=== PATIENT | male | born 1970 | race Caucasian/White ===

== ENCOUNTER 2016-02-23 19:30 | Emergency (ER) | payer OTHER ==
[2016-02-23 19:54] VITALS: RESP 18; TEMP 97.9
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
[2016-02-23] MEDS: KETOROLAC 60 MG/2 ML VIAL IM ONE (20:45)
[2016-02-23] MEDS: Dexamethasone Oral Soln 10 MG/5 ML SOLN PO ONE (20:46)
--- NOTE | 2016-02-23 21:35 | DI ---
HISTORY: Fell on ice. Back pain radiating to the hips. History of disc surgery in 1996. COMPARISON: 06/30/2011. FINDINGS: AP, lateral and coned-down views of the lumbar spine are obtained, and demonstrate anatomi c alignment without fractures. There has been interval loss of intervertebral disc height at the L4/ L5 level with facet hypertrophy. A nonobstructive bowel gas pattern is seen. No pathologic calcific ations are noted. IMPRESSION: 1. Degenerative disc disease worsening at the L4/L5 level. No fractures.
== END 2016-02-23 21:50 | disposition home or self-care (01) ==
LOC: ER 19:30
DX: M54.5 Low back pain (principal); M25.552 Pain in left hip; M25.551 Pain in right hip
CPT/HCPCS: 72100; 96372; 99282 ×2; J1885; J8540

== ENCOUNTER → 2016-03-11 | Outpatient (CLI) | payer OTHER | LOC: MMPC 09:00 | PROVIDERS: ATTEND Family Medicine | DX: H90.6 Mixed conductive and sensorineural hearing loss, bilateral (principal) | CPT/HCPCS: 99213; G0463 ==

== ENCOUNTER → 2016-03-16 | Outpatient (CLI) | payer OTHER | LOC: MMPC 10:00 | PROVIDERS: ATTEND Orthopaedic Surgery | DX: M17.0 Bilateral primary osteoarthritis of knee (principal) | CPT/HCPCS: 20610; 99213; G0463; J0702; J7325 ==

== ENCOUNTER → 2016-03-25 | Outpatient (CLI) | payer OTHER | LOC: MMPC 10:00 | PROVIDERS: ATTEND Podiatrist Foot & Ankle Surgery | DX: E11.9 Type 2 diabetes mellitus without complications (principal); M25.572 Pain in left ankle and joints of left foot; M25.571 Pain in right ankle and joints of right foot; M76.61 Achilles tendinitis, right leg; L60.8 Other nail disorders | CPT/HCPCS: 11719 ×2; 99213; G0463 ==

== ENCOUNTER → 2016-04-02 | Outpatient (CLI) | payer OTHER | LOC: MMPC 09:00 | PROVIDERS: ATTEND Family Medicine | DX: R51 Headache (principal); E66.9 Obesity, unspecified; K12.2 Cellulitis and abscess of mouth | CPT/HCPCS: 99213; J0696 ==

== ENCOUNTER → 2016-06-24 | Outpatient (CLI) | payer OTHER ==
--- NOTE | 2016-06-24 12:18 | DI ---
XR FOOT COMPLETE MIN 3VW WB,06/24/2016 10:41 AM: Clinical History: Hallux rigidus of the left foot. Previous Exam: October 01, 2014 Findings: 3 views of the left foot are obtained, and demonstrate anatomic alignment without fractures. Degenera tive osteoarthritis is noted of the left first metatarsophalangeal joint with osteophyte formation. The surrounding soft tissues are unremarkable. There is in these up the at the insertion of the Achil les tendon and the plantar fascia. There are degenerative changes involving the tarsometatarsal joints. Impression: Degenerative hypertrophy of the left first metatarsophalangeal joint.
== END ==
LOC: MOB RAD 10:44
PROVIDERS: ATTEND Podiatrist Foot & Ankle Surgery
DX: M20.22 Hallux rigidus, left foot (principal); M19.072 Primary osteoarthritis, left ankle and foot
CPT/HCPCS: 73630

== ENCOUNTER → 2016-06-26 | Outpatient (CLI) | payer OTHER | LOC: MMPC 09:00 | PROVIDERS: ATTEND Family Medicine | DX: E11.9 Type 2 diabetes mellitus without complications (principal); I10 Essential (primary) hypertension; E66.8 Other obesity | CPT/HCPCS: 99213; G0463 ==

== ENCOUNTER → 2016-07-27 | Outpatient (CLI) | payer OTHER ==
--- NOTE | 2016-07-27 14:59 | DI ---
XR TOES MIN 2VW,07/27/2016 2:19 PM: Clinical History: Injury of right great toe Previous Exam: None available. Findings: 3 views of the right great toe are obtained, and demonstrate diffuse degenerative changes of the righ t great toe worst in the right first metatarsophalangeal joint. A few osteophytes are noted. There is some soft tissue swelling. Impression: Degenerative changes of the right first metatarsophalangeal joint.
== END ==
LOC: MOB RAD 14:22
PROVIDERS: ATTEND Physician Assistant
DX: S99.921A Unspecified injury of right foot, initial encounter (principal); M19.071 Primary osteoarthritis, right ankle and foot; W18.00XA Striking against unspecified object with subsequent fall, initial encounter; Y93.H2 Activity, gardening and landscaping
CPT/HCPCS: 73660; 99212; G0463

== ENCOUNTER 2016-08-19 00:04 | Emergency (ER) | payer OTHER ==
[2016-08-19 00:54] VITALS: RESP 20; TEMP 97.4
[2016-08-19] MEDS ORDERED: Sodium Chloride 0.9% 1,000 ML PRIMARY IV ONE (01:39)
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
== END 2016-08-19 01:38 | disposition home or self-care (01) ==
LOC: ER 00:04
DX: M25.551 Pain in right hip (principal); E11.9 Type 2 diabetes mellitus without complications; I10 Essential (primary) hypertension; W11.XXXA Fall on and from ladder, initial encounter
CPT/HCPCS: 73502; 99283

== ENCOUNTER → 2016-09-03 | Outpatient (CLI) | payer OTHER ==
[2016-09-03 13:29] LABS: HEMOGLOBIN A1C 6.49 % (4.2-6.0)
--- NOTE | 2016-09-03 13:34 | EKG ---
[address] [address] Measurements Intervals [place] Rate: 54 P: 61 MN: 139 QRS: 40 QRSD: 91 T: 52 QT: 436 QTc: 422 Interpretive Statements SINUS BRADYCARDIA Compared to ECG 08/15/2014 14:31:34 Sinus rhythm no longer present Electronically Signed On 09-05-16 16:25:33 MDT by Ted Vivar [email or web address]
[2016-09-03 13:38] LABS: BLOOD UREA NITROGEN 16 mg/dL (7-22); BUN/CREATININE RATIO 14.54 (6-20); CALCIUM 8.9 mg/dL (8.7-10.7); EST GLOMERULAR FILTRATION > 60 (>60 ml/min/1.73m(2))
== END ==
LOC: LAB 12:56
PROVIDERS: ATTEND Podiatrist Foot & Ankle Surgery
DX: M20.22 Hallux rigidus, left foot (principal); E11.9 Type 2 diabetes mellitus without complications; R00.1 Bradycardia, unspecified; F17.200 Nicotine dependence, unspecified, uncomplicated
CPT/HCPCS: 36415; 80053; 83036; 93005; 93010

== ENCOUNTER 2016-09-04 05:51 | Day surgery (SDC) | payer OTHER ==
[2016-09-04] MEDS ORDERED: Lactated Ringers 1,000 ML PRIMARY IV ONE (06:00)
[2016-09-04] MEDS ORDERED: LIDOCAINE W/ SODIUM BICARB 0.5 ML SYR ONE (06:01)
[2016-09-04] MEDS ORDERED: ceFAZolin Inj 2gm (Premix) 0 ML IV ONE (06:01)
[2016-09-04 06:39] VITALS: RESP 14
[2016-09-04] MEDS ORDERED: IPRATROPIUM/ALBUTEROL SULFATE 3 ML NEB NEB ONE ×2 (06:58→07:05)
[2016-09-04] MEDS ORDERED: MEPIVACAINE HCL/PF 20 MG/1 ML IV ONE (07:05)
[2016-09-04] MEDS ORDERED: MIDAZOLAM 5 MG/1 ML ONE (07:06)
[2016-09-04] MEDS ORDERED: fentaNYL Inj 250 MCG/5 ML VIAL ONE (07:06)
[2016-09-04] MEDS ORDERED: DEXAMETHASONE PF 10 MG/1 ML VIAL ONE (07:06)
[2016-09-04] MEDS ORDERED: BUPIVACAINE 0.5% W/EPI MPF -30 ML VIAL IV ONE (07:07)
[2016-09-04] MEDS ORDERED: ceFAZolin Inj 3 GM in Sodium Chloride 0.9% 100 ML IV ONE (07:30)
--- NOTE | 2016-09-04 07:40 | CRNA.PROCE ---
Nerve Block Documentation - - Safety Measures: Time Out Taken, Site Verified - - Type of Nerve Block Used: Left Popliteal Fossa Block (Primary anesthetic for bunionectomy.) Position for Nerve Block: Prone Moniters Used During Block: EKG, SPO2, NIBP Oxygen Sumpplented: Yes Sedation Used - Enter Amount in Comment Field: Midazolam (mg): Yes (2.5) Skin Prep Used: ChloroPrep (Twice) Draped: No Technique: Nerve Stimulator Stimulation Hz: 1 Stimulation Staring mA: 1.8 Stimulation Ending mA: 0.5 Local Anesthetic - Enter Amt in Comment Field: 0.5 % Bupivicaine with Epinephrine 1:200,000 (mL): Yes (25 ml in 1.5), 2 % Mepivacaine (mL): Yes (15 ml in 1.5 ml increments) Additives to Nerve Blocks: Dexamethasone (mg): Yes (10)
[2016-09-04] MEDS ORDERED: ePHEDrine Inj 50 MG/ML AMP ONE (08:24)
[2016-09-04] MEDS ORDERED: BUPivacaine Liposome/PF (Exparel) Inj 20ml vial INFIL ONE ×2 (08:27→09:08)
[2016-09-04] MEDS ORDERED: NORMAL SALINE 10 ML SYRINGE FLUSH IVP PRN (09:31)
--- NOTE | 2016-09-04 09:44 | GEN.OPNOTE ---
Operative Report Surgeon: Geraldo Gaitan DPM Anesthesia Type: General, Regional, Local (with post op exparel sub cutaneous) Anesthesia Provider: Joyce Clark CRNA Surgery Date: 09/04/16 Preoperative Diagnosis: 1. Left foot pain. 2. Left hallux rigidus. Postoperative Diagnosis: 1. Left foot pain. 2. Left hallux rigidus. Procedure: 1. Left modified Colin bunionectomy. [id number] Estimated Blood Loss (mL): 5 (pneumatic cuff about the left ankle at 250 mmHg pressure for 58 minutes total time.) Fluids: 3 g Ancef preoperatively. 900 mL lactated Ringer's Complications: None Description of Procedure: The patient was brought to the operating room and placed in the supine position. They had already been given a popliteal block of the lower extremity , and MAC was continued. The patient was then converted to general anesthesia. The foot was prepped and draped in the usual sterile fashion. A timeout was performed. Preoperative radiographs were reviewed delineating the area of concern, and this was marked on the foot. The foot was then exsanguinated with an elastic Esmarch, after which a pneumatic cuff was inflated about the left ankle to 250 mmHg pressure. Attention was directed to the dorsal left first metatarsophalangeal joint on the right foot. A linear incision was made just lateral to the extensor hallucis longus tendon of the proximally 4 cm length. This was deepened by sharp and blunt dissection to level of the joint capsule. Joint capsule was also incised longitudinally and retracted as the fibers are released from the exostosis. Significant exostosis was noted around the first metatarsophalangeal joint. The first metatarsal head exostosis was removed with a sagittal saw, dorsally, dorsal laterally, dorsal medially, and medially. The wound was irrigated. This was checked with C-arm and modified as needed. Range of motion was noted to be increased. After the first set of C-arm photos there is still some minimal bony lipping on the dorsal edge which was found, and reduced with a sagittal saw. Next a power rasp was used to smooth the edge of the cuts. The wound was copiously irrigated. Bone wax was applied to the first metatarsal head and again the wound was copiously irrigated. Exparel was then injected around the first ray into the subcutaneous tissues. Closure was performed with 3-0 Vicryl for the joint capsule and 4-0 Vicryl for the subcutaneous tissues. And 4-0 nylon for the skin. A dressing consisted of Xeroform, gauze, Kerlix, and Coban. The pneumatic cuff was released after 58 minutes total time. Capillary return was noted all toes. The patient was returned recovery. Plan: The postop course will include starting to walk as soon as the popliteal block wears off, and the patient has his balance. This should be within 24 hours. When at rest his elevatus foot above his heart. His first postoperative dressing change will be in [address] Gaitan. The patient already has his postoperative medications.
[2016-09-04 13:50] VITALS: TEMP 97.2
--- NOTE | 2016-09-05 11:51 | DI ---
LEFT FOOT, 09/04/2016 9:31 AM: Clinical History: Hallux rigidus. Previous Exam: 06/24/2016. 3 views are submitted. The patient is status post bunionectomy. The bony prominence on the dorsal navneet face of the distal head of the first metatarsal bone has been resected. The remainder of the exam is normal. Reading: Postoperative changes as above.
== END 2016-09-04 11:30 | disposition home or self-care (01) ==
LOC: SDSC 05:51
PROVIDERS: ATTEND Podiatrist Foot & Ankle Surgery
DX: M20.22 Hallux rigidus, left foot (principal); M79.672 Pain in left foot; E11.8 Type 2 diabetes mellitus with unspecified complications; E66.9 Obesity, unspecified
CPT/HCPCS: 28289; 73630; 76001; 94640; C9290; J0670; J0690; J2250; J2704; J3010; J7620; S0020; J1100; J7050; J7120

== ENCOUNTER → 2016-09-10 | Outpatient (CLI) | payer OTHER | LOC: MMPC 10:00 | PROVIDERS: ATTEND Podiatrist Foot & Ankle Surgery | DX: E11.9 Type 2 diabetes mellitus without complications (principal); Z98.890 Other specified postprocedural states ==

== ENCOUNTER → 2016-09-17 | Outpatient (CLI) | payer OTHER | LOC: MMPC 10:00 | PROVIDERS: ATTEND Podiatrist Foot & Ankle Surgery | DX: E11.9 Type 2 diabetes mellitus without complications (principal); Z98.890 Other specified postprocedural states ==

== ENCOUNTER 2016-09-18 02:32 | Emergency (ER) | payer OTHER ==
[2016-09-18] MEDS ORDERED: Amoxicill/Clav 875/125mg Tab 1 TAB TAB PO ONE (02:55)
[2016-09-18] MEDS ORDERED: KETOROLAC 60 MG/2 ML VIAL IM ONE (02:55)
[2016-09-18 02:56] VITALS: RESP 18; TEMP 97.3
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
== END 2016-09-18 03:11 | disposition home or self-care (01) ==
LOC: ER 02:32
DX: T81.4XXA Infection following a procedure, initial encounter (principal); G89.18 Other acute postprocedural pain
CPT/HCPCS: 96372; 99282 ×2; J1885

== ENCOUNTER → 2016-09-30 | Outpatient (CLI) | payer OTHER | LOC: MMPC 10:00 | PROVIDERS: ATTEND Podiatrist Foot & Ankle Surgery | DX: M79.671 Pain in right foot (principal); M20.21 Hallux rigidus, right foot; E11.9 Type 2 diabetes mellitus without complications ==

== ENCOUNTER → 2016-10-07 | Outpatient (CLI) | payer OTHER | LOC: MMPC 09:00 | PROVIDERS: ATTEND Family Medicine | DX: E11.9 Type 2 diabetes mellitus without complications (principal); I10 Essential (primary) hypertension; E66.8 Other obesity; G47.33 Obstructive sleep apnea (adult) (pediatric) | CPT/HCPCS: 99214; G0463 ==